=== PATIENT | female | born 1955 | race Caucasian/White ===

== ENCOUNTER 2017-03-25 17:05 | Inpatient (IN) | payer MEDICARE ==
[~2017-03-25 17:05] MED LIST: BISACODYL 10 MG SUPP PR; DEXTROSE 50% 50 ML SYRINGE IV; FLEET ENEMA PR; GLUCAGON FOR INJ 1 MG VIAL (J1610) SC; GLUCOSE 4 GM CHEW TABLET PO
[2017-03-25] MEDS: CALCIUM CARBONATE 500 MG CHEW U/D PO (19:26)
[2017-03-25] MEDS: HumaLOG INSULIN (NovoLOG) PER UNIT SC ×2 (19:26→21:00)
[2017-03-25 19:44] LABS: APPEARANCE, URINE CLEAR (CLEAR); BACTERIA, URINE AUTO NEGATIVE (NEGATIVE); BILIRUBIN, URINE AUTO NEGATIVE (NEGATIVE); BLOOD, URINE BLOOD NEGATIVE (NEGATIVE); COLOR, URINE STRAW (YELLOW); GLUCOSE, URINE (UA) AUTO 2+ mg/dL (NEGATIVE); KETONE, URINE AUTO NEGATIVE (NEGATIVE); LEUKOCYTE ESTERASE, URINE AUTO NEGATIVE (NEGATIVE); NITRITE, URINE AUTO NEGATIVE (NEGATIVE); PROTEIN, URINE AUTO 2+ mg/dL (NEGATIVE); RBC, URINE AUTO 2 /HPF (0-3); SPECIFIC GRAVITY URINE AUTO 1.012 (1.002-1.035); SQUAMOUS EPITHELIAL CELL UR AU 0 /HPF (0-6); UROBILINOGEN, URINE AUTO 0.2 mg/dL (0.0-2.0); WBC, URINE AUTO 1 /HPF (0-3)
[2017-03-25] MEDS: NYSTATIN CREAM 15 GM TOP (21:16)
[2017-03-25] MEDS: TIMOLOL XE GFS 0.5% OPHTH 5 ML OU (21:16)
[2017-03-25] MEDS: FENOFIBRATE 145 MG TAB (TRICOR) PO (21:16)
[2017-03-25] MEDS: **hydrALAZINE** 10 MG TAB PO (21:30)
[2017-03-25 21:56] LABS: BEDSIDE GLUCOSE 210 MG/DL (80-115)
[2017-03-25] MEDS: SYMBICORT 80/4.5MCG INHALER 6GM INH (23:07)
[2017-03-26] MEDS: **hydrALAZINE** 10 MG TAB PO ×3 (05:08→17:48)
[2017-03-26] MEDS: LEVOTHYROXINE 88MCG TABLET (0.088 MG) PO (05:55)
[2017-03-26] MEDS: SYMBICORT 80/4.5MCG INHALER 6GM INH ×2 (07:22→19:57)
[2017-03-26 07:29] LABS: BASO # 0.1 10^3/uL (0.0-0.2); BASO % 0.4 % (0.0-1.0); EOS # 0.3 10^3/uL (0.0-0.50); EOS % 2.6 % (0.0-3.0); HEMATOCRIT 35.3 % (36.0-47.0); HEMOGLOBIN 11.7 g/dl (12.0-16.0); IMMATURE GRANULOCYTE # 0.1 10^3/uL (0-0); IMMATURE GRANULOCYTE % 0.6 % (0-0); LYMPH # 2.6 10^3/uL (1.5-4.5); MEAN CORPUSCULAR HEMOGLOBIN 28.5 pg (27.0-33.0); MEAN CORPUSCULAR HGB CONC 33.1 g/dl (32.0-36.5); MEAN CORPUSCULAR VOLUME 86.1 fl (80.0-96.0); MONO # 0.7 10^3/uL (0.0-0.8); MONO % 5.8 % (0.0-5.0); NEUTROPHILS % 68.6 % (36.0-66.0); PLATELET COUNT, AUTOMATED 316 10^3/uL (150-450); RED CELL DISTRIBUTION WIDTH 12.4 % (11.5-14.5); WHITE BLOOD COUNT 11.7 10^3/uL (4.0-10.0)
[2017-03-26 07:53] LABS: ALBUMIN 2.8 GM/DL (3.2-5.2); ALBUMIN/GLOBULIN RATIO 0.72 (1.00-1.93); ALKALINE PHOSPHATASE 64 U/L (45-117); ALT/SGPT 12 U/L (12-78); ANION GAP 8 MEQ/L (8-16); AST/SGOT 13 U/L (7-37); BILIRUBIN,TOTAL 0.3 MG/DL (0.2-1.0); BLOOD UREA NITROGEN 26 MG/DL (7-18); CALCIUM LEVEL 8.7 MG/DL (8.8-10.2); CARBON DIOXIDE LEVEL 24 MEQ/L (21-32); CHLORIDE LEVEL 110 MEQ/L (98-107); CREATININE FOR GFR 2.04 MG/DL (0.55-1.02); GLOMERULAR FILTRATION RATE 26.2 (>45); GLUCOSE, FASTING 233 MG/DL (70-100); SODIUM LEVEL 142 MEQ/L (136-145); TOTAL PROTEIN 6.7 GM/DL (6.4-8.2)
[2017-03-26] MEDS: LISINOPRIL 10 MG TAB PO (08:26)
[2017-03-26] MEDS: PANTOPRAZOLE 40MG TAB (PROTONIX) PO (08:26)
[2017-03-26] MEDS: amLODIPine 10 MG TAB PO (08:26)
[2017-03-26] MEDS: CALCIUM CARBONATE 500 MG CHEW U/D PO ×3 (08:26→17:46)
[2017-03-26] MEDS: ASPIRIN 81 MG CHEW TABLET PO (08:26)
[2017-03-26] MEDS: NYSTATIN CREAM 15 GM TOP ×2 (08:27→21:47)
[2017-03-26] MEDS: HumaLOG INSULIN (NovoLOG) PER UNIT SC ×4 (08:28→21:00)
[2017-03-26] MEDS: NYSTATIN 500,000 U/5 ML SUSP UDC SSP ×3 (09:00→21:46)
[2017-03-26 11:42] LABS: BEDSIDE GLUCOSE 194 MG/DL (80-115)
[2017-03-26] MEDS: GLIMEPIRIDE 2 MG TAB PO (12:19)
[2017-03-26 12:24] LABS: MAGNESIUM LEVEL 1.6 MG/DL (1.8-2.4)
[2017-03-26 16:53] LABS: BEDSIDE GLUCOSE 212 MG/DL (80-115)
[2017-03-26] MEDS: LACTOBACILLUS ACIDOPHILUS CAP (BACID) PO (17:46)
[2017-03-26 20:57] LABS: BEDSIDE GLUCOSE 178 MG/DL (80-115)
[2017-03-26] MEDS: FENOFIBRATE 145 MG TAB (TRICOR) PO (21:45)
[2017-03-26] MEDS: TIMOLOL XE GFS 0.5% OPHTH 5 ML OU (21:46)
[2017-03-26] MEDS: ATORVASTATIN 20 MG TAB PO (21:46)
[2017-03-27] MEDS: **hydrALAZINE** 10 MG TAB PO ×4 (00:14→17:13)
[2017-03-27] MEDS: LEVOTHYROXINE 88MCG TABLET (0.088 MG) PO (06:15)
[2017-03-27 06:25] LABS: HEMOGLOBIN 11.8 g/dl (12.0-16.0); MEAN CORPUSCULAR HEMOGLOBIN 28.1 pg (27.0-33.0); MEAN CORPUSCULAR HGB CONC 32.8 g/dl (32.0-36.5); MEAN CORPUSCULAR VOLUME 85.7 fl (80.0-96.0); PLATELET COUNT, AUTOMATED 334 10^3/uL (150-450); RED CELL DISTRIBUTION WIDTH 12.6 % (11.5-14.5); WHITE BLOOD COUNT 12.3 10^3/uL (4.0-10.0)
[2017-03-27 06:55] LABS: ALBUMIN/GLOBULIN RATIO 0.94 (1.00-1.93); ALKALINE PHOSPHATASE 66 U/L (45-117); ALT/SGPT 14 U/L (12-78); ANION GAP 8 MEQ/L (8-16); AST/SGOT 12 U/L (7-37); BILIRUBIN,TOTAL 0.3 MG/DL (0.2-1.0); BLOOD UREA NITROGEN 29 MG/DL (7-18); CALCIUM LEVEL 8.7 MG/DL (8.8-10.2); CARBON DIOXIDE LEVEL 25 MEQ/L (21-32); CHLORIDE LEVEL 110 MEQ/L (98-107); CREATININE FOR GFR 2.21 MG/DL (0.55-1.02); FERRITIN 252 NG/ML (8-252); GLOMERULAR FILTRATION RATE 23.9 (>45); GLUCOSE, FASTING 121 MG/DL (70-100); IRON (FE) 34 UG/DL (50-170); PERCENT SATURATION 12.5 % (13.2-45.0); POTASSIUM SERUM 4.4 MEQ/L (3.5-5.1); SODIUM LEVEL 143 MEQ/L (136-145); TOTAL IRON BINDING CAPACITY 271 UG/DL (250-450); TOTAL PROTEIN 6.2 GM/DL (6.4-8.2)
[2017-03-27 07:04] LABS: MAGNESIUM LEVEL 1.7 MG/DL (1.8-2.4)
[2017-03-27] MEDS: SYMBICORT 80/4.5MCG INHALER 6GM INH ×2 (07:32→21:00)
[2017-03-27] MEDS: LACTOBACILLUS ACIDOPHILUS CAP (BACID) PO ×2 (07:54→17:13)
[2017-03-27] MEDS: PANTOPRAZOLE 40MG TAB (PROTONIX) PO (07:54)
[2017-03-27] MEDS: GLIMEPIRIDE 2 MG TAB PO (07:54)
[2017-03-27] MEDS: NYSTATIN 500,000 U/5 ML SUSP UDC SSP ×3 (07:54→20:19)
[2017-03-27] MEDS: HumaLOG INSULIN (NovoLOG) PER UNIT SC ×4 (07:54→21:07)
[2017-03-27] MEDS: hydroCHLOROthiazide 12.5 MG CAPSULE PO (07:55)
[2017-03-27] MEDS: CALCIUM CARBONATE 500 MG CHEW U/D PO ×3 (07:55→17:13)
[2017-03-27] MEDS: MAG SULF 1GM/100ML (MAG RUN) 1 GM in APPROPRIATE DILUENT 1 EA IV ×2 (07:55→09:52)
[2017-03-27] MEDS: ASPIRIN 81 MG CHEW TABLET PO (07:55)
[2017-03-27] MEDS: amLODIPine 10 MG TAB PO (07:55)
[2017-03-27] MEDS: NYSTATIN CREAM 15 GM TOP ×2 (07:56→20:20)
[2017-03-27] MEDS: TIMOLOL XE GFS 0.5% OPHTH 5 ML OU (20:19)
[2017-03-27] MEDS: ATORVASTATIN 20 MG TAB PO (20:19)
[2017-03-27] MEDS: FENOFIBRATE 145 MG TAB (TRICOR) PO (20:19)
[2017-03-28] MEDS: **hydrALAZINE** 10 MG TAB PO ×4 (00:20→16:59)
[2017-03-28] MEDS: LEVOTHYROXINE 88MCG TABLET (0.088 MG) PO (05:50)
[2017-03-28] MEDS: SYMBICORT 80/4.5MCG INHALER 6GM INH ×2 (06:17→19:38)
[2017-03-28 06:47] LABS: ANION GAP 8 MEQ/L (8-16); BLOOD UREA NITROGEN 33 MG/DL (7-18); CALCIUM LEVEL 8.9 MG/DL (8.8-10.2); CARBON DIOXIDE LEVEL 26 MEQ/L (21-32); CHLORIDE LEVEL 108 MEQ/L (98-107); CREATININE FOR GFR 2.29 MG/DL (0.55-1.02); GLOMERULAR FILTRATION RATE 22.9 (>45); GLUCOSE, FASTING 213 MG/DL (70-100); POTASSIUM SERUM 4.2 MEQ/L (3.5-5.1); SODIUM LEVEL 142 MEQ/L (136-145)
[2017-03-28] MEDS: NYSTATIN 500,000 U/5 ML SUSP UDC SSP ×3 (08:35→20:50)
[2017-03-28] MEDS: GLIMEPIRIDE 2 MG TAB PO (08:36)
[2017-03-28] MEDS: HumaLOG INSULIN (NovoLOG) PER UNIT SC ×4 (08:36→20:44)
[2017-03-28] MEDS: LACTOBACILLUS ACIDOPHILUS CAP (BACID) PO ×2 (08:36→17:00)
[2017-03-28] MEDS: ASPIRIN 81 MG CHEW TABLET PO (08:36)
[2017-03-28] MEDS: PANTOPRAZOLE 40MG TAB (PROTONIX) PO (08:36)
[2017-03-28] MEDS: hydroCHLOROthiazide 12.5 MG CAPSULE PO (08:36)
[2017-03-28] MEDS: CALCIUM CARBONATE 500 MG CHEW U/D PO ×3 (08:36→17:00)
[2017-03-28] MEDS: amLODIPine 10 MG TAB PO (08:37)
[2017-03-28] MEDS: NYSTATIN CREAM 15 GM TOP ×2 (08:37→20:51)
[2017-03-28] MEDS: ATORVASTATIN 20 MG TAB PO (20:50)
[2017-03-28] MEDS: FENOFIBRATE 145 MG TAB (TRICOR) PO (20:50)
[2017-03-28] MEDS: TIMOLOL XE GFS 0.5% OPHTH 5 ML OU (20:51)
[2017-03-28 20:56] LABS: BEDSIDE GLUCOSE 168 MG/DL (80-115)
[2017-03-28 20:56] LABS: BEDSIDE GLUCOSE 228 MG/DL (80-115)
[2017-03-28 20:56] LABS: BEDSIDE GLUCOSE 203 MG/DL (80-115)
[2017-03-28 20:56] LABS: BEDSIDE GLUCOSE 235 MG/DL (80-115)
[2017-03-28 20:56] LABS: BEDSIDE GLUCOSE 219 MG/DL (80-115)
[2017-03-28 20:56] LABS: BEDSIDE GLUCOSE 275 MG/DL (80-115)
[2017-03-28 20:56] LABS: BEDSIDE GLUCOSE 209 MG/DL (80-115)
[2017-03-28] MEDS: ACETAMINOPHEN 650 MG SUPP PR (22:15)
[2017-03-29] MEDS: **hydrALAZINE** 10 MG TAB PO ×4 (06:00→17:38)
[2017-03-29] MEDS: LEVOTHYROXINE 88MCG TABLET (0.088 MG) PO (06:24)
[2017-03-29 06:28] LABS: BEDSIDE GLUCOSE 224 MG/DL (80-115)
[2017-03-29] MEDS: SYMBICORT 80/4.5MCG INHALER 6GM INH ×2 (07:56→20:32)
[2017-03-29 08:30] LABS: ANION GAP 11 MEQ/L (8-16); BLOOD UREA NITROGEN 40 MG/DL (7-18); CALCIUM LEVEL 8.5 MG/DL (8.8-10.2); CARBON DIOXIDE LEVEL 23 MEQ/L (21-32); CHLORIDE LEVEL 108 MEQ/L (98-107); CREATININE FOR GFR 2.64 MG/DL (0.55-1.30); GLOMERULAR FILTRATION RATE 19.4 (>45); GLUCOSE, FASTING 217 MG/DL (70-100); POTASSIUM SERUM 4.6 MEQ/L (3.5-5.1); SODIUM LEVEL 142 MEQ/L (136-145)
[2017-03-29] MEDS: PANTOPRAZOLE 40MG TAB (PROTONIX) PO (08:34)
[2017-03-29] MEDS: GLIMEPIRIDE 2 MG TAB PO (08:34)
[2017-03-29] MEDS: hydroCHLOROthiazide 25 MG TAB PO (08:34)
[2017-03-29] MEDS: HumaLOG INSULIN (NovoLOG) PER UNIT SC ×4 (08:34→20:10)
[2017-03-29] MEDS: amLODIPine 10 MG TAB PO (08:35)
[2017-03-29] MEDS: ASPIRIN 81 MG CHEW TABLET PO (08:35)
[2017-03-29] MEDS: LACTOBACILLUS ACIDOPHILUS CAP (BACID) PO ×2 (08:35→17:38)
[2017-03-29] MEDS: NYSTATIN CREAM 15 GM TOP ×2 (08:35→20:10)
[2017-03-29] MEDS: NYSTATIN 500,000 U/5 ML SUSP UDC SSP ×3 (08:35→20:10)
[2017-03-29] MEDS: CALCIUM CARBONATE 500 MG CHEW U/D PO ×3 (08:35→17:38)
[2017-03-29 11:35] LABS: FOLATE 5.2 NG/ML (>5.4); VITAMIN B12 LEVEL 264 PG/ML (247-911)
[2017-03-29 11:59] LABS: BEDSIDE GLUCOSE 134 MG/DL (80-115)
[2017-03-29 12:56] LABS: APPEARANCE, URINE HAZY (CLEAR); BACTERIA, URINE AUTO 1+ (NEGATIVE); BILIRUBIN, URINE AUTO NEGATIVE (NEGATIVE); BLOOD, URINE BLOOD NEGATIVE (NEGATIVE); COLOR, URINE YELLOW (YELLOW); GLUCOSE, URINE (UA) AUTO 1+ mg/dL (NEGATIVE); KETONE, URINE AUTO NEGATIVE (NEGATIVE); LEUKOCYTE ESTERASE, URINE AUTO NEGATIVE (NEGATIVE); NITRITE, URINE AUTO NEGATIVE (NEGATIVE); PROTEIN, URINE AUTO 2+ mg/dL (NEGATIVE); RBC, URINE AUTO 1 /HPF (0-3); SPECIFIC GRAVITY URINE AUTO 1.017 (1.002-1.035); SQUAMOUS EPITHELIAL CELL UR AU 5 /HPF (0-6); UROBILINOGEN, URINE AUTO 0.2 mg/dL (0.0-2.0); WBC, URINE AUTO 1 /HPF (0-3)
[2017-03-29 13:25] LABS: SODIUM,RANDOM URINE 75 MEQ/L
[2017-03-29 17:10] LABS: BEDSIDE GLUCOSE 74 MG/DL (80-115)
[2017-03-29] MEDS: ATORVASTATIN 20 MG TAB PO (20:10)
[2017-03-29] MEDS: FENOFIBRATE 145 MG TAB (TRICOR) PO (20:10)
[2017-03-29] MEDS: TIMOLOL XE GFS 0.5% OPHTH 5 ML OU (20:10)
[2017-03-29 20:13] LABS: BEDSIDE GLUCOSE 200 MG/DL (80-115)
[2017-03-30] MEDS: **hydrALAZINE** 10 MG TAB PO ×4 (06:00→18:41)
[2017-03-30] MEDS: LEVOTHYROXINE 88MCG TABLET (0.088 MG) PO (06:26)
[2017-03-30 07:44] LABS: ANION GAP 8 MEQ/L (8-16); BLOOD UREA NITROGEN 39 MG/DL (7-18); CALCIUM LEVEL 8.7 MG/DL (8.8-10.2); CARBON DIOXIDE LEVEL 23 MEQ/L (21-32); CHLORIDE LEVEL 109 MEQ/L (98-107); CREATININE FOR GFR 2.52 MG/DL (0.55-1.30); GLOMERULAR FILTRATION RATE 20.5 (>45); GLUCOSE, FASTING 112 MG/DL (70-100); SODIUM LEVEL 140 MEQ/L (136-145)
[2017-03-30] MEDS: SYMBICORT 80/4.5MCG INHALER 6GM INH ×2 (08:18→21:00)
[2017-03-30] MEDS: PANTOPRAZOLE 40MG TAB (PROTONIX) PO (08:29)
[2017-03-30] MEDS: LACTOBACILLUS ACIDOPHILUS CAP (BACID) PO ×2 (08:29→18:40)
[2017-03-30] MEDS: CALCIUM CARBONATE 500 MG CHEW U/D PO ×3 (08:29→18:40)
[2017-03-30] MEDS: amLODIPine 10 MG TAB PO (08:29)
[2017-03-30] MEDS: NYSTATIN CREAM 15 GM TOP ×2 (08:29→20:15)
[2017-03-30] MEDS: HumaLOG INSULIN (NovoLOG) PER UNIT SC ×4 (08:29→21:00)
[2017-03-30] MEDS: ASPIRIN 81 MG CHEW TABLET PO (08:29)
[2017-03-30] MEDS: NYSTATIN 500,000 U/5 ML SUSP UDC SSP ×3 (08:29→20:15)
[2017-03-30] MEDS: FOLIC ACID 1 MG TAB PO (11:35)
[2017-03-30 11:48] LABS: BEDSIDE GLUCOSE 169 MG/DL (80-115)
[2017-03-30 12:07] LABS: MAGNESIUM LEVEL 1.9 MG/DL (1.8-2.4)
[2017-03-30 16:35] LABS: BEDSIDE GLUCOSE 288 MG/DL (80-115)
[2017-03-30 20:12] LABS: BEDSIDE GLUCOSE 173 MG/DL (80-115)
[2017-03-30] MEDS: TIMOLOL XE GFS 0.5% OPHTH 5 ML OU (20:15)
[2017-03-30] MEDS: FENOFIBRATE 145 MG TAB (TRICOR) PO (20:15)
[2017-03-30] MEDS: ATORVASTATIN 20 MG TAB PO (20:16)
[2017-03-30] MEDS: ACETAMINOPHEN TAB 650MG DOSE (2X325MG) PO (20:16)
[2017-03-31] MEDS: LEVOTHYROXINE 88MCG TABLET (0.088 MG) PO (06:16)
[2017-03-31] MEDS: **hydrALAZINE** 10 MG TAB PO ×4 (06:19→17:23)
[2017-03-31 06:55] LABS: HEMATOCRIT 37.4 % (36.0-47.0); HEMOGLOBIN 12.6 g/dl (12.0-16.0); MEAN CORPUSCULAR HEMOGLOBIN 28.7 pg (27.0-33.0); MEAN CORPUSCULAR HGB CONC 33.7 g/dl (32.0-36.5); MEAN CORPUSCULAR VOLUME 85.2 fl (80.0-96.0); PLATELET COUNT, AUTOMATED 371 10^3/uL (150-450); RED BLOOD COUNT 4.39 10^6/uL (4.00-5.40); RED CELL DISTRIBUTION WIDTH 12.4 % (11.5-14.5); WHITE BLOOD COUNT 10.1 10^3/uL (4.0-10.0)
[2017-03-31 07:12] LABS: ANION GAP 6 MEQ/L (8-16); BLOOD UREA NITROGEN 35 MG/DL (7-18); CALCIUM LEVEL 9.2 MG/DL (8.8-10.2); CARBON DIOXIDE LEVEL 27 MEQ/L (21-32); CHLORIDE LEVEL 107 MEQ/L (98-107); GLOMERULAR FILTRATION RATE 22.8 (>45); GLUCOSE, FASTING 133 MG/DL (70-100); MAGNESIUM LEVEL 1.9 MG/DL (1.8-2.4); POTASSIUM SERUM 4.2 MEQ/L (3.5-5.1); SODIUM LEVEL 140 MEQ/L (136-145)
[2017-03-31] MEDS: CALCIUM CARBONATE 500 MG CHEW U/D PO ×3 (07:55→17:22)
[2017-03-31] MEDS: HumaLOG INSULIN (NovoLOG) PER UNIT SC ×4 (07:55→20:38)
[2017-03-31] MEDS: LACTOBACILLUS ACIDOPHILUS CAP (BACID) PO ×2 (07:56→17:22)
[2017-03-31] MEDS: FOLIC ACID 1 MG TAB PO (09:10)
[2017-03-31] MEDS: PANTOPRAZOLE 40MG TAB (PROTONIX) PO (09:10)
[2017-03-31] MEDS: ASPIRIN 81 MG CHEW TABLET PO (09:11)
[2017-03-31] MEDS: NYSTATIN CREAM 15 GM TOP ×2 (09:11→20:38)
[2017-03-31] MEDS: amLODIPine 10 MG TAB PO (09:11)
[2017-03-31] MEDS: SYMBICORT 80/4.5MCG INHALER 6GM INH ×2 (09:18→21:00)
[2017-03-31 11:42] LABS: BEDSIDE GLUCOSE 279 MG/DL (80-115)
[2017-03-31 16:48] LABS: BEDSIDE GLUCOSE 124 MG/DL (80-115)
[2017-03-31] MEDS: ATORVASTATIN 20 MG TAB PO (20:37)
[2017-03-31] MEDS: FENOFIBRATE 145 MG TAB (TRICOR) PO (20:37)
[2017-03-31] MEDS: ACETAMINOPHEN TAB 650MG DOSE (2X325MG) PO (20:38)
[2017-03-31] MEDS: TIMOLOL XE GFS 0.5% OPHTH 5 ML OU (20:38)
[2017-03-31 20:45] LABS: BEDSIDE GLUCOSE 216 MG/DL (80-115)
[2017-04-01] MEDS: **hydrALAZINE** 10 MG TAB PO ×4 (05:56→17:41)
[2017-04-01] MEDS: LEVOTHYROXINE 88MCG TABLET (0.088 MG) PO (05:56)
[2017-04-01 06:58] LABS: BEDSIDE GLUCOSE 159 MG/DL (80-115)
[2017-04-01 06:59] LABS: HEMATOCRIT 37.9 % (36.0-47.0); HEMOGLOBIN 12.7 g/dl (12.0-16.0); MEAN CORPUSCULAR HEMOGLOBIN 28.7 pg (27.0-33.0); MEAN CORPUSCULAR HGB CONC 33.5 g/dl (32.0-36.5); MEAN CORPUSCULAR VOLUME 85.6 fl (80.0-96.0); PLATELET COUNT, AUTOMATED 363 10^3/uL (150-450); RED BLOOD COUNT 4.43 10^6/uL (4.00-5.40); RED CELL DISTRIBUTION WIDTH 12.4 % (11.5-14.5); WHITE BLOOD COUNT 10.9 10^3/uL (4.0-10.0)
[2017-04-01 07:14] LABS: ANION GAP 9 MEQ/L (8-16); BLOOD UREA NITROGEN 36 MG/DL (7-18); CARBON DIOXIDE LEVEL 25 MEQ/L (21-32); CHLORIDE LEVEL 105 MEQ/L (98-107); CREATININE FOR GFR 2.26 MG/DL (0.55-1.30); GLOMERULAR FILTRATION RATE 23.3 (>45); GLUCOSE, FASTING 164 MG/DL (70-100); POTASSIUM SERUM 4.2 MEQ/L (3.5-5.1); SODIUM LEVEL 139 MEQ/L (136-145)
[2017-04-01] MEDS: CALCIUM CARBONATE 500 MG CHEW U/D PO ×3 (07:34→17:42)
[2017-04-01] MEDS: LACTOBACILLUS ACIDOPHILUS CAP (BACID) PO ×2 (07:34→17:42)
[2017-04-01] MEDS: HumaLOG INSULIN (NovoLOG) PER UNIT SC ×4 (07:34→21:54)
[2017-04-01] MEDS: FOLIC ACID 1 MG TAB PO (09:05)
[2017-04-01] MEDS: amLODIPine 10 MG TAB PO (09:05)
[2017-04-01] MEDS: PANTOPRAZOLE 40MG TAB (PROTONIX) PO (09:05)
[2017-04-01] MEDS: ASPIRIN 81 MG CHEW TABLET PO (09:05)
[2017-04-01] MEDS: NYSTATIN CREAM 15 GM TOP ×2 (09:06→21:55)
[2017-04-01] MEDS: SYMBICORT 80/4.5MCG INHALER 6GM INH ×2 (11:26→19:38)
[2017-04-01 11:34] LABS: BEDSIDE GLUCOSE 179 MG/DL (80-115)
[2017-04-01 17:29] LABS: BEDSIDE GLUCOSE 174 MG/DL (80-115)
[2017-04-01 21:21] LABS: BEDSIDE GLUCOSE 193 MG/DL (80-115)
[2017-04-01] MEDS: ATORVASTATIN 20 MG TAB PO (21:50)
[2017-04-01] MEDS: FENOFIBRATE 145 MG TAB (TRICOR) PO (21:53)
[2017-04-01] MEDS: TIMOLOL XE GFS 0.5% OPHTH 5 ML OU (21:54)
[2017-04-02] MEDS: **hydrALAZINE** 10 MG TAB PO ×4 (00:44→18:39)
[2017-04-02] MEDS ORDERED: VANCOMYCIN HCL 1,000 MG, VIAL MATE ADAPTER 1 EACH in D5W 250 ML IV (06:00)
[2017-04-02] MEDS: LEVOTHYROXINE 88MCG TABLET (0.088 MG) PO (06:20)
[2017-04-02 07:14] LABS: HEMOGLOBIN 11.7 g/dl (12.0-16.0); MEAN CORPUSCULAR HEMOGLOBIN 28.4 pg (27.0-33.0); MEAN CORPUSCULAR HGB CONC 33.4 g/dl (32.0-36.5); PLATELET COUNT, AUTOMATED 366 10^3/uL (150-450); RED BLOOD COUNT 4.12 10^6/uL (4.00-5.40); RED CELL DISTRIBUTION WIDTH 12.3 % (11.5-14.5); WHITE BLOOD COUNT 9.5 10^3/uL (4.0-10.0)
[2017-04-02 07:15] LABS: BEDSIDE GLUCOSE 177 MG/DL (80-115)
[2017-04-02 07:32] LABS: ANION GAP 7 MEQ/L (8-16); BLOOD UREA NITROGEN 37 MG/DL (7-18); CALCIUM LEVEL 8.7 MG/DL (8.8-10.2); CARBON DIOXIDE LEVEL 28 MEQ/L (21-32); CHLORIDE LEVEL 106 MEQ/L (98-107); CREATININE FOR GFR 2.21 MG/DL (0.55-1.30); GLOMERULAR FILTRATION RATE 23.9 (>45); GLUCOSE, FASTING 183 MG/DL (70-100); SODIUM LEVEL 141 MEQ/L (136-145)
[2017-04-02] MEDS: HumaLOG INSULIN (NovoLOG) PER UNIT SC ×4 (08:07→21:10)
[2017-04-02] MEDS: SYMBICORT 80/4.5MCG INHALER 6GM INH ×2 (08:20→20:51)
[2017-04-02] MEDS: CALCIUM CARBONATE 500 MG CHEW U/D PO ×3 (08:35→18:39)
[2017-04-02] MEDS: LACTOBACILLUS ACIDOPHILUS CAP (BACID) PO ×2 (08:35→18:39)
[2017-04-02] MEDS: PANTOPRAZOLE 40MG TAB (PROTONIX) PO (08:35)
[2017-04-02] MEDS: ASPIRIN 81 MG CHEW TABLET PO (08:35)
[2017-04-02] MEDS: amLODIPine 10 MG TAB PO (08:36)
[2017-04-02] MEDS: FOLIC ACID 1 MG TAB PO (08:36)
[2017-04-02] MEDS: NYSTATIN CREAM 15 GM TOP ×2 (08:36→21:10)
[2017-04-02] MEDS ORDERED: LIDOCAINE 2% INJ 100 MG/5 ML SDV (FOR ANES.) As Ordered (11:52)
[2017-04-02] MEDS ORDERED: fentaNYL 100 MCG/2 ML INJECTION (J3010) As Ordered (11:52)
[2017-04-02] MEDS ORDERED: dexameTHASONE 4 MG/ML 1ML VIAL (J1100) As Ordered (11:52)
[2017-04-02] MEDS ORDERED: ONDANSETRON 4MG/2ML VIAL (J2405) As Ordered (11:52)
[2017-04-02] MEDS ORDERED: MIDAZOLAM INJ 2 MG/2 ML VIAL (J2250) As Ordered (11:52)
[2017-04-02] MEDS ORDERED: PROPOFOL 200 MG/20 ML VIAL As Ordered (11:52)
[2017-04-02 12:11] LABS: BEDSIDE GLUCOSE 168 MG/DL (80-115)
[2017-04-02] MEDS: VANCOMYCIN HCL 1,000 MG, VIAL MATE ADAPTER 1 EACH in D5W 250 ML IV (14:29)
[2017-04-02] MEDS: LIDOCAINE 1% SDV INJ 30 ML VIAL As Ordered (15:25)
[2017-04-02] MEDS: LR 1,000 ML IV (16:15)
[2017-04-02] MEDS ORDERED: fentaNYL 100 MCG/2 ML INJECTION (J3010) IV (16:15)
[2017-04-02] MEDS ORDERED: ONDANSETRON 4MG/2ML VIAL (J2405) IV (16:15)
[2017-04-02 16:47] LABS: BEDSIDE GLUCOSE 158 MG/DL (80-115)
[2017-04-02 20:20] LABS: BEDSIDE GLUCOSE 313 MG/DL (80-115)
[2017-04-02 20:20] LABS: BEDSIDE GLUCOSE 169 MG/DL (80-115)
[2017-04-02] MEDS: ATORVASTATIN 20 MG TAB PO (21:09)
[2017-04-02] MEDS: FENOFIBRATE 145 MG TAB (TRICOR) PO (21:09)
[2017-04-02] MEDS: TIMOLOL XE GFS 0.5% OPHTH 5 ML OU (21:10)
[2017-04-03] MEDS: **hydrALAZINE** 10 MG TAB PO ×4 (06:00→18:00)
[2017-04-03] MEDS: LEVOTHYROXINE 88MCG TABLET (0.088 MG) PO (06:06)
[2017-04-03 07:20] LABS: ANION GAP 8 MEQ/L (8-16); BLOOD UREA NITROGEN 41 MG/DL (7-18); CALCIUM LEVEL 9.2 MG/DL (8.8-10.2); CARBON DIOXIDE LEVEL 28 MEQ/L (21-32); CHLORIDE LEVEL 102 MEQ/L (98-107); GLOMERULAR FILTRATION RATE 21.7 (>45); GLUCOSE, FASTING 294 MG/DL (70-100); POTASSIUM SERUM 4.4 MEQ/L (3.5-5.1); SODIUM LEVEL 138 MEQ/L (136-145)
[2017-04-03] MEDS: SYMBICORT 80/4.5MCG INHALER 6GM INH (08:21)
[2017-04-03] MEDS: NYSTATIN CREAM 15 GM TOP ×2 (09:00→21:09)
[2017-04-03] MEDS: ASPIRIN 81 MG CHEW TABLET PO (09:08)
[2017-04-03] MEDS: CALCIUM CARBONATE 500 MG CHEW U/D PO ×3 (09:08→16:56)
[2017-04-03] MEDS: HumaLOG INSULIN (NovoLOG) PER UNIT SC ×4 (09:08→20:19)
[2017-04-03] MEDS: amLODIPine 10 MG TAB PO (09:09)
[2017-04-03] MEDS: PANTOPRAZOLE 40MG TAB (PROTONIX) PO (09:09)
[2017-04-03] MEDS: LACTOBACILLUS ACIDOPHILUS CAP (BACID) PO ×2 (09:09→16:56)
[2017-04-03] MEDS: FOLIC ACID 1 MG TAB PO (09:10)
[2017-04-03 11:55] LABS: BEDSIDE GLUCOSE 211 MG/DL (80-115)
[2017-04-03 16:31] LABS: BEDSIDE GLUCOSE 222 MG/DL (80-115)
[2017-04-03 20:30] LABS: BEDSIDE GLUCOSE 181 MG/DL (80-115)
[2017-04-03] MEDS: ATORVASTATIN 20 MG TAB PO (21:08)
[2017-04-03] MEDS: TIMOLOL XE GFS 0.5% OPHTH 5 ML OU (21:08)
[2017-04-03] MEDS: FENOFIBRATE 145 MG TAB (TRICOR) PO (21:08)
[2017-04-04] MEDS: SYMBICORT 80/4.5MCG INHALER 6GM INH ×3 (02:35→21:00)
[2017-04-04] MEDS: **hydrALAZINE** 10 MG TAB PO ×5 (06:00→23:33)
[2017-04-04] MEDS: LEVOTHYROXINE 88MCG TABLET (0.088 MG) PO (06:41)
[2017-04-04 07:34] LABS: ANION GAP 8 MEQ/L (8-16); BLOOD UREA NITROGEN 45 MG/DL (7-18); CALCIUM LEVEL 9.1 MG/DL (8.8-10.2); CARBON DIOXIDE LEVEL 28 MEQ/L (21-32); CHLORIDE LEVEL 104 MEQ/L (98-107); CREATININE FOR GFR 2.29 MG/DL (0.55-1.30); GLOMERULAR FILTRATION RATE 22.9 (>45); GLUCOSE, FASTING 155 MG/DL (70-100); SODIUM LEVEL 140 MEQ/L (136-145)
[2017-04-04] MEDS: NYSTATIN CREAM 15 GM TOP ×2 (09:00→21:00)
[2017-04-04] MEDS: LACTOBACILLUS ACIDOPHILUS CAP (BACID) PO ×2 (09:18→17:12)
[2017-04-04] MEDS: ASPIRIN 81 MG CHEW TABLET PO (09:18)
[2017-04-04] MEDS: CALCIUM CARBONATE 500 MG CHEW U/D PO ×3 (09:18→17:12)
[2017-04-04] MEDS: PANTOPRAZOLE 40MG TAB (PROTONIX) PO (09:18)
[2017-04-04] MEDS: HumaLOG INSULIN (NovoLOG) PER UNIT SC ×4 (09:18→21:00)
[2017-04-04] MEDS: amLODIPine 10 MG TAB PO (09:18)
[2017-04-04] MEDS: FOLIC ACID 1 MG TAB PO (09:18)
[2017-04-04 11:53] LABS: BEDSIDE GLUCOSE 244 MG/DL (80-115)
[2017-04-04 17:05] LABS: BEDSIDE GLUCOSE 229 MG/DL (80-115)
[2017-04-04 20:44] LABS: BEDSIDE GLUCOSE 176 MG/DL (80-115)
[2017-04-04] MEDS: ATORVASTATIN 20 MG TAB PO (22:16)
[2017-04-04] MEDS: TIMOLOL XE GFS 0.5% OPHTH 5 ML OU (22:16)
[2017-04-04] MEDS: FENOFIBRATE 145 MG TAB (TRICOR) PO (22:16)
[2017-04-05] MEDS: **hydrALAZINE** 10 MG TAB PO ×2 (06:00→11:52)
[2017-04-05] MEDS: LEVOTHYROXINE 88MCG TABLET (0.088 MG) PO (06:32)
[2017-04-05 07:15] LABS: BEDSIDE GLUCOSE 230 MG/DL (80-115)
[2017-04-05 08:30] LABS: ANION GAP 7 MEQ/L (8-16); BLOOD UREA NITROGEN 45 MG/DL (7-18); CALCIUM LEVEL 8.7 MG/DL (8.8-10.2); CARBON DIOXIDE LEVEL 29 MEQ/L (21-32); CHLORIDE LEVEL 104 MEQ/L (98-107); CREATININE FOR GFR 2.39 MG/DL (0.55-1.30); GLOMERULAR FILTRATION RATE 21.8 (>45); GLUCOSE, FASTING 207 MG/DL (70-100); POTASSIUM SERUM 4.2 MEQ/L (3.5-5.1); SODIUM LEVEL 140 MEQ/L (136-145)
[2017-04-05] MEDS: ASPIRIN 81 MG CHEW TABLET PO (08:45)
[2017-04-05] MEDS: PANTOPRAZOLE 40MG TAB (PROTONIX) PO (08:45)
[2017-04-05] MEDS: HumaLOG INSULIN (NovoLOG) PER UNIT SC ×3 (08:45→17:25)
[2017-04-05] MEDS: CALCIUM CARBONATE 500 MG CHEW U/D PO ×3 (08:45→17:26)
[2017-04-05] MEDS: LACTOBACILLUS ACIDOPHILUS CAP (BACID) PO ×2 (08:45→17:26)
[2017-04-05] MEDS: NYSTATIN CREAM 15 GM TOP (08:46)
[2017-04-05] MEDS: FOLIC ACID 1 MG TAB PO (08:46)
[2017-04-05] MEDS: amLODIPine 10 MG TAB PO (08:46)
[2017-04-05] MEDS: SYMBICORT 80/4.5MCG INHALER 6GM INH (09:30)
[2017-04-05 12:04] LABS: BEDSIDE GLUCOSE 234 MG/DL (80-115)
[2017-04-05 16:59] LABS: BEDSIDE GLUCOSE 146 MG/DL (80-115)
== END 2017-04-05 17:45 | disposition home or self-care (01) | DRG 42 ==
LOC: M PM&R 17:05
PROC: 0JH632Z Insertion of Monitoring Device into Chest Subcutaneous Tissue and Fascia, Percutaneous Approach (ICD-10-PCS; principal; 2017-04-02 14:30)
DX: I69.351 Hemiplegia and hemiparesis following cerebral infarction affecting right dominant side (principal); I69.398 Other sequelae of cerebral infarction; I69.392 Facial weakness following cerebral infarction; H53.461 Homonymous bilateral field defects, right side; E11.9 Type 2 diabetes mellitus without complications; E78.5 Hyperlipidemia, unspecified; I12.9 Hypertensive chronic kidney disease with stage 1 through stage 4 chronic kidney disease, or unspecified chronic kidney disease; D64.9 Anemia, unspecified; H40.9 Unspecified glaucoma; H04.129 Dry eye syndrome of unspecified lacrimal gland; E66.9 Obesity, unspecified; I25.10 Atherosclerotic heart disease of native coronary artery without angina pectoris; M19.011 Primary osteoarthritis, right shoulder; N18.9 Chronic kidney disease, unspecified; J44.9 Chronic obstructive pulmonary disease, unspecified; E03.9 Hypothyroidism, unspecified; K21.9 Gastro-esophageal reflux disease without esophagitis; L89.151 Pressure ulcer of sacral region, stage 1; F17.210 Nicotine dependence, cigarettes, uncomplicated; Z79.4 Long term (current) use of insulin; Z79.899 Other long term (current) drug therapy; Z79.82 Long term (current) use of aspirin; Z90.710 Acquired absence of both cervix and uterus; Z89.429 Acquired absence of other toe(s), unspecified side; Z88.0 Allergy status to penicillin; Z88.1 Allergy status to other antibiotic agents; Z88.8 Allergy status to other drugs, medicaments and biological substances; Z68.31 Body mass index [BMI] 31.0-31.9, adult